=== PATIENT | female | born 1950 | race Caucasian/White ===

== ENCOUNTER 2021-10-03 00:30 | Emergency (ER) | payer MEDICARE ==
[~2021-10-03] VITALS: Ht 163.8 cm; Wt 84.8 kg
[~2021-10-03 00:30] MED LIST: ADVAIR 100-501 EACH INH; AMARYL2 MG PO; AMLODIPINE BES2.5 MG PO; ASPIRIN325 MG PO; BENICAR20 MG PO; BYSTOLIC10 MG PO; IPRATROPIU0.2 MG/1 M NEB; LISINOPRIL10 MG PO; MELOXICAM7.5 MG PO; METFORMIN HCL500 MG PO; NEXIUM40 MG PO; NICODERM CQ1 EAC2 TOP; PROAIR HFA INH8.5 GM INH; PROTONIX40 MG/ML PO; VIT D PO; XANAX0.5 MG PO; ZOCOR20 MG PO
[2021-10-03] MEDS ORDERED: HYDROXYZINE HCL 25 MG TAB PO STA (00:59)
[2021-10-03 01:00] LABS: BASOPHILS # (AUTO) 0.1 (0.0-0.1); BASOPHILS % 0.8 % (0.0-1.0); EOSINOPHILS # (AUTO) 0.6 (0.0-0.4); EOSINOPHILS % 7.8 % (0.0-6.0); HEMATOCRIT 46.2 % (34.2-44.1); HEMOGLOBIN 14.2 g/dL (12.0-16.0); LYMPHOCYTES # (AUTO) 1.8 (1.0-3.2); LYMPHOCYTES % 24.8 % (18.0-39.1); MEAN CORPUSCULAR HEMOGLOBIN 28.8 pg (28-32); MEAN CORPUSCULAR HGB CONC 30.7 g/dL (31-35); MEAN CORPUSCULAR VOLUME 93.7 fL (81-99); MONOCYTES # (AUTO) 0.7 (0.2-0.8); MONOCYTES % 9.9 % (4.4-11.3); NEUTROPHILS % 56.4 % (38.7-80.0); PLATELET COUNT 148 x10e3/uL (140-360); RED BLOOD COUNT 4.93 x10e6/uL (3.6-5.1); RED CELL DISTRIBUTION WIDTH 13.9 % (11.7-14.4)
[2021-10-03 01:05] LABS: CLARITY,URINE CLEAR (CLEAR); COLOR,URINE YELLOW (YELLOW); KETONES,URINE NEGATIVE (NEGATIVE); LEUKOCYTE ESTERASE ,URINE NEGATIVE (NEGATIVE); NITRITE,URINE NEGATIVE (NEGATIVE); PROTEIN,URINE DIPSTICK NEGATIVE (NEGATIVE); URINE UROBILINOGEN 0.2 mg/dL (0.2 - 1)
[2021-10-03 01:07] LABS: BACTERIA,URINE FEW /HPF; EPITHELIAL CELLS,URINE FEW /LPF; RBC,URINE 0-5 /HPF (0-5); WBC,URINE (MAN) 0-5 /HPF (0-5)
[2021-10-03 01:16] LABS: CALCIUM 10.1 mg/dL (8.4-10.2); CREATININE, SERUM 1.19 mg/dL (0.57-1.11)
== END 2021-10-03 01:56 | disposition home or self-care (01) ==
LOC: ER 00:38
DX: I10 Essential (primary) hypertension (principal); R21 Rash and other nonspecific skin eruption; R94.31 Abnormal electrocardiogram [ECG] [EKG]; E11.65 Type 2 diabetes mellitus with hyperglycemia; J44.9 Chronic obstructive pulmonary disease, unspecified; I48.91 Unspecified atrial fibrillation; J45.909 Unspecified asthma, uncomplicated
CPT/HCPCS: 36415; 80048; 81001; 84484; 85025; 93005; 99284; J3410

== ENCOUNTER 2024-04-13 17:40 | Observation (INO) | payer MEDICARE ==
[~2024-04-13] VITALS: Ht 165.1 cm; Wt 83.0 kg
[2024-04-13 17:49] VITALS: TEMP 97.7
[2024-04-13 18:24] LABS: BASOPHILS # (AUTO) 0.1 (0.0-0.1); BASOPHILS % 0.9 % (0.0-1.0); EOSINOPHILS # (AUTO) 0.2 (0.0-0.4); EOSINOPHILS % 3.3 % (0.0-6.0); HEMATOCRIT 48.1 % (34.2-44.1); HEMOGLOBIN 15.5 g/dL (12.0-16.0); LYMPHOCYTES # (AUTO) 1.9 (1.0-3.2); LYMPHOCYTES % 26.9 % (18.0-39.1); MEAN CORPUSCULAR HEMOGLOBIN 29.4 pg (28-32); MEAN CORPUSCULAR HGB CONC 32.2 g/dL (31-35); MEAN CORPUSCULAR VOLUME 91.3 fL (81-99); MONOCYTES # (AUTO) 0.6 (0.2-0.8); MONOCYTES % 8.5 % (4.4-11.3); NEUTROPHILS # (AUTO) 4.2 (2.1-6.9); NEUTROPHILS % 60.1 % (38.7-80.0); PLATELET COUNT 116 x10e3/uL (140-360); RED BLOOD COUNT 5.27 x10e6/uL (3.6-5.1); RED CELL DISTRIBUTION WIDTH 13.2 % (11.7-14.4); WHITE BLOOD COUNT 6.91 x10e3/uL (4.8-10.8)
[2024-04-13 18:41] LABS: CLARITY,URINE SL CLOUDY (CLEAR); COLOR,URINE YELLOW (YELLOW); LEUKOCYTE ESTERASE ,URINE TRACE (NEGATIVE); NITRITE,URINE NEGATIVE (NEGATIVE); PH,URINE 6 (5 - 7); PROTEIN,URINE DIPSTICK NEGATIVE (NEGATIVE)
[2024-04-13 18:42] LABS: ALBUMIN 3.9 g/dL (3.5-5.0); ALBUMIN/GLOBULIN RATIO 1.2 (0.8-2.0); ANION GAP 13.6 mmol/L (8-16); BILIRUBIN,TOTAL 0.6 mg/dL (0.2-1.2); CALCIUM 10.5 mg/dL (8.4-10.2); CREATININE, SERUM 1.17 mg/dL (0.57-1.11); POTASSIUM 4.6 mmol/L (3.5-5.1); TOTAL PROTEIN 7.2 g/dL (6.5-8.1)
[2024-04-13 18:42] LABS: BILIRUBIN,URINE NEGATIVE (NEGATIVE); GLUCOSE, URINE 500 (NEGATIVE); KETONES,URINE NEGATIVE (NEGATIVE); URINE UROBILINOGEN 1 mg/dL (0.2 - 1)
[2024-04-13] MEDS: SODIUM CHLORIDE 0.9% 1000ML 1,000 ML IV ONE (18:51)
[2024-04-13 18:54] LABS: BACTERIA,URINE FEW /HPF; TRANSITIONAL EPI CELLS,URINE FEW; WBC,URINE (MAN) 0-5 /HPF (0-5)
[2024-04-13] MEDS ORDERED: SODIUM CHLORIDE 0.9% 100 ML ONE (19:00)
[2024-04-13] MEDS ORDERED: IOPAMIDOL 370 MG/ML 100 ML INFUS..BTL INJ ONE (19:00)
[2024-04-13] MEDS ORDERED: ONDANSETRON HCL INJ 2MG/ML 2ML 2 MG/ML VIAL IV PRN (20:45)
[2024-04-13] MEDS ORDERED: DEXTROSE 50% SYRINGE 50 ML IV PRN (20:45)
[2024-04-13] MEDS ORDERED: SODIUM CHLORIDE FLUSH 10 ML SYR INJ PRN (20:45)
[2024-04-13] MEDS: INSULIN REGULAR, HUMAN 100 UNIT/1 ML SQ SCH (21:00)
[2024-04-13 21:30] VITALS: PULSE 72; RESP 18
[2024-04-13] MEDS: ALPRAZOLAM 1 MG TAB PO ONE (21:33)
[2024-04-13] MEDS: RIVAROXABAN 10 MG TABLET PO SCH (21:33)
[2024-04-13] MEDS: CRESTOR 10MG PO SCH (21:34)
[2024-04-13 22:47] VITALS: BP 140/75; PULSE 73; RESP 18; TEMP 97.4; O2SAT 98
[2024-04-13] MEDS ORDERED: ROSUVASTATIN CA20 MG PO (23:54)
[2024-04-13] MEDS ORDERED: vitamin d PO (23:54)
[2024-04-13] MEDS ORDERED: XARELTO20 MG PO (23:54)
[2024-04-13] MEDS ORDERED: JARDIANCE25 MG PO (23:54)
[2024-04-13] MEDS ORDERED: METOPROLOL SUCC50 MG PO (23:54)
[2024-04-13] MEDS ORDERED: MOUNJARO5 MG/0.5 M SC (23:54)
[2024-04-13 23:57] VITALS: BP 140/75; PULSE 73; RESP 18; TEMP 97.4; O2SAT 100
[2024-04-13 23:59] VITALS: BP 140/75; PULSE 73; RESP 18; TEMP 97.4; O2SAT 98
[2024-04-14] VITALS (7 sets, daily range): BP systolic 117–157; BP diastolic 51–82; PULSE 60–77; RESP 17–22; TEMP 97.6–97.9; O2SAT 96–100
[2024-04-14 07:05] LABS: TROPONIN I 0.006 ng/mL (0-0.300)
[2024-04-14] MEDS ORDERED: SIMETHICONE 80 MG CHEW PO PRN (10:15)
[2024-04-14] MEDS ORDERED: ALBUTEROL/IPRATROPIUM 3 ML NEB NEB PRN (10:15)
[2024-04-14] MEDS ORDERED: MELATONIN 3 MG TAB PO PRN (10:15)
[2024-04-14] MEDS ORDERED: DOCUSATE SODIUM 100 MG CAP PO PRN (10:15)
[2024-04-14] MEDS ORDERED: DEXTROSE 50% SYRINGE 50 ML IV PRN (10:15)
[2024-04-14] MEDS ORDERED: ACETAMINOPHEN 325 MG TAB PO PRN (10:15)
[2024-04-14] MEDS ORDERED: METOPROLOL TARTRATE INJ 1 MG/ML VIAL IV PRN (10:15)
[2024-04-14 10:39] LABS: POTASSIUM 3.8 mmol/L (3.5-5.1)
[2024-04-14 10:46] LABS: CHOL/HDL RATIO 3.6 (3.0-3.6)
[2024-04-14 11:08] LABS: ANION GAP 16.8 mmol/L (8-16); CREATININE, SERUM 0.98 mg/dL (0.57-1.11)
[2024-04-14] MEDS: INSULIN REGULAR, HUMAN 100 UNIT/1 ML SQ SCH (11:30)
[2024-04-14 15:02] LABS: CREATINE KINASE 64 IU/L (29-168)
[2024-04-14 15:13] LABS: TROPONIN I < 0.001 ng/mL (0-0.300)
[2024-04-14] MEDS: RIVAROXABAN 15 MG TABLET PO SCH (18:24)
[2024-04-14] MEDS ORDERED: CRESTOR40 MG PEG (19:37)
[2024-04-14] MEDS ORDERED: AMLODIPINE BESYL5 MG PO (19:37)
[2024-04-14] MEDS ORDERED: ECOTRIN81 MG PO (19:38)
[2024-04-14] MEDS ORDERED: CRESTOR 10MG PO SCH (21:00)
== END 2024-04-14 20:30 | disposition home or self-care (01) ==
LOC: ER 18:00 → ERHOLD 20:48 → MED/SURG3 22:47
PROVIDERS: ADMIT Internal Medicine; ATTEND Internal Medicine
DX: G93.41 Metabolic encephalopathy (principal); G45.9 Transient cerebral ischemic attack, unspecified; E11.22 Type 2 diabetes mellitus with diabetic chronic kidney disease; I12.9 Hypertensive chronic kidney disease with stage 1 through stage 4 chronic kidney disease, or unspecified chronic kidney disease; N18.30 Chronic kidney disease, stage 3 unspecified; Z79.84 Long term (current) use of oral hypoglycemic drugs; Z79.85 Long-term (current) use of injectable non-insulin antidiabetic drugs; J44.9 Chronic obstructive pulmonary disease, unspecified; I48.20 Chronic atrial fibrillation, unspecified; D35.02 Benign neoplasm of left adrenal gland; Z79.01 Long term (current) use of anticoagulants; Z79.899 Other long term (current) drug therapy; Z79.82 Long term (current) use of aspirin; Z87.891 Personal history of nicotine dependence
CPT/HCPCS: 36415 ×2; 70496; 70498; 70551; 71045; 80048; 80053; 80061; 81001; 82550; 82948 ×2; 83036; 84484 ×2; 85025; 93005; 93306; 94799; 97161; 99284; G0378 ×2; J7030; J7050; Q9967